=== PATIENT | female | born 1950 | race African-American/Black ===

== ENCOUNTER 2016-06-28 08:58 | Outpatient (CLI) | payer MEDICARE ==
--- NOTE | 2016-06-28 12:40 | Ultrasound Report ---
ULTRASOUND RENAL INDICATION: Renal mass. COMPARISON: 04/12/2016 CT. FINDINGS: Renal sonography suggests grossly normal renal cortical echogenicity. Grossly preserved contours. No hydronephrosis. Diffuse hepatic echogenic coarsening. Right kidney measures 8.2 x 4.3 x 4.9 cm with cortical thickness of 0.7 cm. Approximately 3.5 x 3 cm cortical cyst superiorly and another approximately 1 cm cortical cyst inferiorly, images 4 and 10. Left kidney estimated at 8.5 x 4.6 x 3.9 cm with cortical thickness of 1.2 cm. A 0.7 cm hypoechoic cortical focus superiorly, image 19 and another 1.4 x 0.8 cm hypoechoic focus inferolaterally, image 16 may be noted. Urinary bladder appears within normal limits. CONCLUSION: No acute renal sonographic abnormality with suspected fatty liver and bilateral renal cortical cysts/hypoechoic foci, as described. Thank you for the opportunity to participate in this patient's care.
== END 2016-06-28 08:59 | disposition home or self-care (01) ==
LOC: US 08:58
PROVIDERS: ATTEND Urology
DX: N28.89 Other specified disorders of kidney and ureter (principal)
CPT/HCPCS: 76770

== ENCOUNTER 2017-05-16 09:06 | Outpatient (CLI) | payer MEDICARE ==
--- NOTE | 2017-05-16 12:28 | Ultrasound Report ---
ULTRASOUND RENAL BILATERAL HISTORY: Renal cyst. TECHNIQUE: transabdominal ultrasound with color Doppler interrogation. FINDINGS: The right kidney measures 8.9 x 3.7 x 4.2cm. Right renal cortex: 0.9cm. The left kidney measures 8.8 x 4.2 x 4.5cm. Left renal cortex: 1.0cm. Both kidneys are slightly atrophic with increased cortical echotexture consistent with chronic renal parenchymal disease. There are 2 cysts in the superior right kidney measuring 3.2 x 3.1 cm and 2.0 x 1.5 cm. There are 3 cysts in the left kidney. A 1.2 cm cyst is identified at the superior pole. There are 2 cysts at the inferior pole measuring 2.1 x 1.7 cm and 0.9 cm. No evidence for shadowing calculus, hypervascular mass or hydronephrosis. Images through the bladder are unremarkable. IMPRESSION: Chronic renal parenchymal disease. Bilateral simple renal cysts which appear unchanged since 06/28/16.
== END 2017-05-16 09:07 | disposition home or self-care (01) ==
LOC: US 09:06
PROVIDERS: ATTEND Urology
DX: Q61.02 Congenital multiple renal cysts (principal); N26.1 Atrophy of kidney (terminal); N28.89 Other specified disorders of kidney and ureter
CPT/HCPCS: 76770